=== PATIENT | female | born 1945 | race Caucasian/White ===

== ENCOUNTER 2018-05-05 10:40 | Emergency (ER) | payer MEDICARE ==
[~2018-05-05] VITALS: Ht 154.9 cm; Wt 45.5 kg
[~2018-05-05 10:40] MED LIST: ABILIFY2 MG PO; ARICEPT10 MG PO; ARICEPT5 MG PO; ATROVENT 0.02%2.5 ML UPD; BACLOFEN10 MG PO; BENTYL10 MG PO; CHOLESTYRAMIN4 G/PK1 PO; CILOSTAZOL50 MG PO; COREG6.25 MG PO; DEXILANT60 MG PO; DILANTIN100 MG PO; EFFEXOR37.5 MG PO; ESTRATEST 1.25-1 TAB PO; HYDROCHLOROTHIA25 MG PO; HYDROCODON-ACE1 EAC7 PO; KLONOPIN1 MG PO; LISINOPRIL5 MG PO; MEGACE 20 MG TA20 MG PO; MEGACE ES625 MG/5 M PO; NEURONTIN 300300 MG PO; PEPCID20 MG PO; PEPCID40 MG PO; PLAVIX75 MG PO; PLETAL PO; PREMARIN45 GM VG; PRINIVIL20 MG PO; PROVERA2.5 MG PO; TOPROL XL25 MG PO; ULTRAM50 MG PO; VITAMIN B-12500 MC1 PO; VITAMIN D5000 UNIT PO; WELLBUTRIN SR150 MG PO; XOPENEX 0.0.63 MG/3 UPD; ZYPREXA2.5 MG PO
[2018-05-05 10:43] VITALS: Ht 154.9 cm; Wt 45.5 kg
[2018-05-05] MEDS ORDERED: NORCO 10-325 TA1 TAB PO (10:49)
[2018-05-05] MEDS ORDERED: DILANTIN100 MG PO ×2 (10:53→10:56)
[2018-05-05] MEDS ORDERED: COLACE100 MG PO (10:54)
[2018-05-05] MEDS ORDERED: LISINOPRIL5 MG PO (10:54)
[2018-05-05] MEDS ORDERED: MOBIC7.5 MG PO (10:55)
[2018-05-05] MEDS ORDERED: LOPERAMIDE HCL2 MG PO (10:55)
[2018-05-05] MEDS ORDERED: ULTRAM50 MG PO (13:29)
[2018-05-05 15:31] VITALS: BP 142/65
== END 2018-05-05 15:04 | disposition home or self-care (01) ==
LOC: D.ER 10:40
DX: S01.81XA Laceration without foreign body of other part of head, initial encounter (principal); W18.30XA Fall on same level, unspecified, initial encounter; Y93.89 Activity, other specified; Y92.129 Unspecified place in nursing home as the place of occurrence of the external cause; S52.612A Displaced fracture of left ulna styloid process, initial encounter for closed fracture; G40.909 Epilepsy, unspecified, not intractable, without status epilepticus; F03.90 Unspecified dementia, unspecified severity, without behavioral disturbance, psychotic disturbance, mood disturbance, and anxiety; I10 Essential (primary) hypertension; J44.9 Chronic obstructive pulmonary disease, unspecified; F17.200 Nicotine dependence, unspecified, uncomplicated

== ENCOUNTER 2018-08-09 19:21 | Emergency (ER) | payer MEDICARE ==
[~2018-08-09] VITALS: Ht 154.9 cm; Wt 39.1 kg
[~2018-08-09 19:21] MED LIST changes: +COLACE100 MG PO; +LOPERAMIDE HCL2 MG PO; +MOBIC7.5 MG PO; +NORCO 10-325 TA1 TAB PO
[2018-08-09 19:23] VITALS: Ht 154.9 cm; Wt 39.1 kg
[2018-08-09] MEDS ORDERED: SEROQUEL25 MG PO (19:30)
[2018-08-09 22:04] VITALS: BP 112/68
== END 2018-08-09 22:05 ==
LOC: D.ER 19:21
DX: S01.81XA Laceration without foreign body of other part of head, initial encounter (principal); W18.30XA Fall on same level, unspecified, initial encounter; Y93.89 Activity, other specified; Y92.129 Unspecified place in nursing home as the place of occurrence of the external cause

== ENCOUNTER 2018-11-19 11:16 | Inpatient (IN) | payer MEDICARE, MEDICAID ==
[~2018-11-19 11:16] MED LIST changes: +SEROQUEL25 MG PO
[2018-11-19] MEDS ORDERED: MEGACE40 MG PO (11:58)
[2018-11-19] MEDS ORDERED: EFFEXOR37.5 MG (11:59)
[2018-11-19] MEDS ORDERED: DONEPEZIL HCL5 MG (11:59)
[2018-11-19] MEDS ORDERED: CILOSTAZOL50 MG (11:59)
[2018-11-19 12:30] VITALS: BP 132/83
[2018-11-19 13:00] LABS: BASOPHILS 0 % (0-2); EOSINOPHILS 1.5 % (0-7); HEMATOCRIT 36.6 % (36.0-48.0); HEMOGLOBIN 12.1 g/dL (12-16); IMMATURE GRANULOCYTES 0.2 % (0-5); MCH 31.8 pg (26.0-34.0); MCHC 33.1 g/dL (31.0-37.0); MCV 96.3 fL (80.0-100.0); MEAN PLATELET VOLUME 9.8 fL (7.4-10.4); MONOCYTES 6.5 % (2-11); NEUTROPHILS 67.8 % (40-80); PLATELET COUNT 296 10x3/uL (130-400); RDW 14.6 % (11.5-14.5); WBC 4.1 10x3/uL (4.8-10.8)
[2018-11-19 13:13] LABS: ALBUMIN 2.9 g/dL (3.4-5.0); ALKALINE PHOSPHATASE 102 U/L (46-116); ALT (SGPT) 21 U/L (10-68); BILIRUBIN - TOTAL 0.41 mg/dL (0.2-1.3); CALC OSMOLALITY 277 mosm/kg (275-300); CALCIUM 8.2 mg/dL (8.5-10.1); CARBON DIOXIDE 23.2 mmol/L (21.0-32.0); CHLORIDE - SERUM 104 mmol/L (98-107); CREATININE - SERUM 0.4 mg/dL (0.6-1.3); POTASSIUM - SERUM 3.4 mmol/L (3.5-5.1); PROTEIN - SERUM 6.4 g/dL (6.4-8.2); SODIUM 139 mmol/L (136-145); UREA NITROGEN 19 mg/dL (7-18); eGFR NON AFRICAN AMERICAN > 90 mL/min (90-120)
[2018-11-19 13:16] LABS: GLUCOSE 68 mg/dL (74-106)
[2018-11-19 13:44] LABS: CREATINE KINASE 245 UL (21-215)
[2018-11-19 13:45] LABS: CKMB 2.1 U/L (0.0-3.6); TROPONIN-I < 0.017 ng/mL (0.000-0.060)
[2018-11-19 13:53] LABS: APPEARANCE CLOUDY (CLEAR); BACTERIA MODERATE /hpf (NONE SEEN); BILIRUBIN NEGATIVE (NEGATIVE); CALCIUM OXALATE CRYSTALS 0-5 /hpf (NONE SEEN); COLOR YELLOW (YELLOW); EPITHELIAL CELLS 0-5 /hpf (0-5); GLUCOSE NEGATIVE (NEGATIVE); KETONE LARGE mg/dL (NEGATIVE); MUCUS >1+ /lpf (NONE SEEN); NITRITE NEGATIVE (NEGATIVE); PROTEIN TRACE mg/dL (NEGATIVE); RED CELLS - URINE 0-5 /hpf (0-5); SPECIFIC GRAVITY 1.025 (1.005-1.020); WHITE CELLS - URINE 0-5 /hpf (0-5)
[2018-11-19 13:54] LABS: AMORPHOUS SEDIMENT >1+ /lpf (NONE SEEN)
[2018-11-19 13:56] VITALS: BP 122/59
[2018-11-19 15:20] VITALS: BP 142/62
--- NOTE | 2018-11-19 15:23 | NUR ---
SITTING UP IN BED EATING LUNCH NO /O FAMILY AT BS
--- NOTE | 2018-11-19 16:23 | NUR ---
REPORT CALLED DOUG MCLEOD RN BY SBAR FORMAT
[2018-11-19 16:25] VITALS: BP 138/64
--- NOTE | 2018-11-19 16:25 | NUR ---
PT TRANSPORTED TO ROOM STABLE. IVFS INFUSING WITHOUT PROBLEMS
[2018-11-19 17:00] VITALS: BP 142/62; BMI 14.7
--- NOTE | 2018-11-19 17:00 | NUR ---
TRANSFER FROM ER BY STRETCHER. ORINTED TO ROOM. CALL LIGHT IN REACH. WILL CONT. PLAN OF CARE.
--- NOTE | 2018-11-19 19:50 | NUR ---
ON INITIAL ASSESMENT PT WAS FOUND ON THE WHEEL CHAIR SITTING AT NURSES STATION WITH OUTGOING NURSE. OUTGOING NURSE STATES PT WAS FOUND CURLED UP IN THE RAIL AND WOULDN'T STAY IN BED EVEN WITH RIN ALARM ON. NOTIFIED CHARGE NURSE. CHARGE NURSE STATES SHE HAS CONTACTED THE FAMILY AND THEY WILL BE HERE ANYTIME SOON. PT CURRENTLY RETURNED TO BED AT THIS TIME IV INFUSING. DENIES ANY FURTHER NEEDS. CONTROLLER OPERATIONS AND HR MANAGER @ BEDSIDE. VSS, ALERT, BUT CONFUSED. CL WITHIN REACH, BED IN LOW. WILL NOTIFY CONTROLLER OPERATIONS AND HR MANAGER WHEN FAILY GETS HERE PER CONTROLLER OPERATIONS AND HR MANAGER REQUEST.
[2018-11-19 20:00] VITALS: BP 103/56
[2018-11-20] VITALS: BP 142/56
[2018-11-20 04:00] VITALS: BP 120/58
[2018-11-20 07:18] LABS: CARBON DIOXIDE 25.2 mmol/L (21.0-32.0); CHLORIDE - SERUM 106 mmol/L (98-107); GLUCOSE 88 mg/dL (74-106); MAGNESIUM - SERUM 1.5 mg/dL (1.8-2.4); PHOSPHOROUS 2.4 mg/dL (2.5-4.9); POTASSIUM - SERUM 3.2 mmol/L (3.5-5.1); SODIUM 141 mmol/L (136-145)
[2018-11-20 07:19] LABS: CALC OSMOLALITY 278 mosm/kg (275-300); CREATININE - SERUM 0.6 mg/dL (0.6-1.3); UREA NITROGEN 9 mg/dL (7-18); eGFR NON AFRICAN AMERICAN > 90 mL/min (90-120)
[2018-11-20 07:21] LABS: HEMATOCRIT 39.6 % (36.0-48.0); HEMOGLOBIN 13.1 g/dL (12-16); MCH 32.2 pg (26.0-34.0); MCHC 33.1 g/dL (31.0-37.0); MCV 97.3 fL (80.0-100.0); PLATELET COUNT 306 10x3/uL (130-400); RBC 4.07 10x6/uL (4.00-5.40)
[2018-11-20 07:22] LABS: BASOPHILS 0.3 % (0-2); MEAN PLATELET VOLUME 9.8 fL (7.4-10.4); NEUTROPHILS 63 % (40-80); RDW 14.7 % (11.5-14.5)
[2018-11-20 07:23] LABS: EOSINOPHILS 2.6 % (0-7); IMMATURE GRANULOCYTES 0.3 % (0-5); LYMPHOCYTES 26.7 % (15-50); MONOCYTES 7.1 % (2-11); WBC 3.8 10x3/uL (4.8-10.8)
[2018-11-20 08:18] VITALS: BP 160/59
--- NOTE | 2018-11-20 09:31 | NUR ---
I have reviewed this patient and I concur with the Shift Assessment completed by the Licensed Practical Nurse today this shift.
[2018-11-20 12:16] VITALS: BMI 14.7
[2018-11-20 12:39] VITALS: BP 115/55
[2018-11-20 16:50] VITALS: BP 149/57
--- NOTE | 2018-11-20 17:30 | NUR ---
PATIENT IS YELLING OUT. WENT TO SEE WHAT SHE NEEDS. NEEDS ANOTHER BLANKET. BED ALARM TURNED ON IT WAS OFF.
[2018-11-20 21:04] VITALS: BP 136/61
[2018-11-21 01:29] VITALS: BP 159/74
--- NOTE | 2018-11-21 04:40 | NUR ---
ASSESSED AT THE BEGINNING OF THE SHIFT. PT IS CONFUSED AND IS IN A BED WITH A RIN MAT. SHE IS ABLE TO VERBALIZE NEEDS AND ANSWERS QUESTIONS CORRECTLY BUT THEN SAYS THINGS THAT DONT MAKE SENSE. AT 2100 LAST NIGHT SHE DECIDED SHE WAS GETTING UP AND EVEN THOUGH HER BED ALARM WENT OFF IT WAS WE WERE UNABLE TO GET THERE BEFORE SHE WAS IN THE FLOOR. SHE STATED SHE DID NOT FALL BUT SAT DOWN. NO INJURIES NOTED BUT IV WAS PULLED OUT. SHE TOOK HER MEDS AFTER THAT AND HAS BEEN QUIET ALL NIGHT WITH NO COMPLAINTS VOICED. THIS MORNING SHE IS HAVING A BATH AND HER IV WAS RESTARTED DURING THE NIGHT. SHE REMAINS INCONTINENT OF URINE AND STOOL.
[2018-11-21 06:22] VITALS: BP 155/65
--- NOTE | 2018-11-21 07:10 | NUR ---
REPORT RECEIVED FROM ELECTRIC BRAIN WAVE EQUIPMENT MECHANIC AND PATIENT CARE ASSUMED. PATIENT LAYING IN BED WITH EYES CLOSED AND BREATHING EVENLY. WILL CONTINUE WITH PLAN OF CARE. SR UP X 2 BED IN LOW POSTION AND CALL LIGHT IN REACH.
--- NOTE | 2018-11-21 07:50 | NUR ---
PATIENT AWAKE, ALERT AND CONFUSED. PATIENT ORIENTED TO NAME ONLY. PATIENT STATES THAT NO ONE IS GOING TO GET BLOOD OUT OF HER AND SHE IS TIRED OF THIS DAMN MCC. SPENT SEVERAL MINUTES SPEAKING WITH PATIENT . PATIENT DID CALM . WILL CONTINUE TO MONITOR. SR UP X 2 BED IN LOW POSTION AND CALL LIGHT IN REACH. RIN BED ALARM IN PLACE AND TURNED ON.
[2018-11-21 08:13] VITALS: BP 160/71
--- NOTE | 2018-11-21 09:00 | NUR ---
PATIENT REFUSE MEDS. MADE SEVERAL ATTEMPTS. PATIENT BEING VERBALLY ABUSIVE AND THREW STYROFOAM CUP OF WATER AT THIS NURSE. THREW BREAKFAST TRAY ON FLOOR. SPENT SEVERAL MINUTES ONE ON ONE WITH PATIENT. STUDENT NURSE AND SERVICE CAPTAIN SPENDING ONE ON ONE WITH PATIENT DUE TO PATIENT SCREAMING AND TRYING TO CRAWL OUT OF BED. SR UP X 2 BED IN LOW POSTION AND CALL LIGHT IN REACH. RIN BED ALARM IN PLACE AND WORKING.
--- NOTE | 2018-11-21 09:30 | NUR ---
CALLED PATIENT DAUGHTER PILAR ON PHONE. INFORMED HER OF PATIENTS CONFUSION AND MENTAL STATUS. DTR STATED THAT SHE WILL BE ON UNIT IN ABOUT AN HOUR TO HELP CALM HER MOTHER .
--- NOTE | 2018-11-21 10:15 | NUR ---
PATIENT CONTINUES TO BE VERBALLY ABUSIVE TO STAFF AND TRYING TO BET OUT OF BED REQUIRING ONE ON ONE WITH STAFF. CONTACTED DOMINIC BELL AND RECIEVED NEW ORDER FOR GEODON. GEODON 10 MG GIVEN IM. PATIENT CONTINUES ONE ON ONE. SR UP X 2 BED IN LOW POSITION AND CALL LIGHT IN REACH. WILL CONTINUE TO MONITOR.
--- NOTE | 2018-11-21 11:30 | NUR ---
PATIENT LAYING ON RIGHT SIDE WITH EYES CLOSED AND BREATHING EVENLY. WILL CONTINUE TO MONITOR. SR UP X 2 BED IN LOW POSITION AND CALL LIGHT IN REACH. RIN BED ALARM IN PLACE AND WORKING.
--- NOTE | 2018-11-21 15:30 | NUR ---
PATIENT SCREAMING , VERBALLY ABUSING STAFF AND REFUSING ANY AND ALL MEDICAL TREATMENT OR INTERVENTION. CALLED DOMINIC BELL AND RECIEVED ORDER FOR A RIN BED. RIN BED PLACED IN ROOM AND PATIENT PLACED IN RIN BED. PATIENT STATES"IM TIRED YALL NEED TO LEAVE ME ALONE." WILL CONTINUE TO MONITOR PATIENT.
--- NOTE | 2018-11-21 16:00 | NUR ---
PTS DTR PILAR HAS NOT COME TO UNIT. CALLED PILAR AND LEFT VM TO CALL BACK.
[2018-11-21] MEDS ORDERED: GEODON20 M1 IM (17:02)
--- NOTE | 2018-11-21 17:04 | NUR ---
PATIENT SCREAMING "CALL THE POLICE" "HELP ME" . PATIENT CONTINUES TO REFUSE MEDICATIONS, IV RE-START , VS , LAB DRAWS . DR RAMIREZ TO ROOM. INFORMS THAT IF PATIENT MEDICALLY STABLE PER DR ADAMS THEN HE RECOMMNEDS PATIENT TO BE DC TO [facility]. CONTACTED DOMINIC BELL WITH DR ADAMS. INFORMED OF DR RAMIREZ RECOMMENDATION AND PATIENT STATUS. PER DOMINIC BELL PATIENT TO BE DISCHARGED TO [facility] AND SHE WILL PUT IN ORDER. MEDICATED PER AUG WITH GEODON 10 MG IM. PATIENT IN RIN BED. NO DISTRESS NOTED. WILL CONTINUE TO MONITOR.
--- NOTE | 2018-11-21 19:00 | NUR ---
PATIENT RESTING COMFORTABLY IN RIN BED. EYES ARE CLOSED AND BREATHING EVENLY. WILL CONTINUE TO MONITOR. MADE ANOTHER ATTEMPT TO CONTACT PILAR KANG VM TO PLEASE CALL OUR UNIT.
[2018-11-21 20:00] VITALS: BP 168/68
--- NOTE | 2018-11-21 20:30 | NUR ---
PATIENT BEING DC TO [facility]. PATIENT RESTING COMFORTABLY IN RIN BED. PATIENT IS PLEASANT AND CALM. PATIENT DENIES ANY NEEDS OR PAIN. REPORT CALLED TO JAQUELINE AT [facility]. INFORMED THIS NURSE THAT THERE ARE NO CLEAN AVAILABLE ROOMS BUT [facility] WOULD BE CALLED AND JAQUELINE WILL LET OUR UNIT KNOW WHEN ROOM AVAILABLE.
--- NOTE | 2018-11-21 22:30 | NUR ---
CALLED [facility] AND SPOKE WITH JAQUELINE. AGAIN INFORMED THAT [facility] HAS NOT CLEANED ROOM YET BUT WILL CALL WHEN ROOM AVAILABLE. NOTIFIED EUGENIO PEMBERTON SUP OF SITUATION. SHE STATED THAT SHE WILL LOOK INTO DELAY.
--- NOTE | 2018-11-21 23:42 | NUR ---
PATIENT TRANSFERRED TO [facility].
--- NOTE | 2018-11-22 11:29 | CN ---
PATIENT NAME:NICOLE VARGHESE MEDICAL RECORD: [id number] : 49 LOCATION:. D.2104 ADMIT DATE: 11/19/18 ACCOUNT: [id number] CONSULTING PHYSICIAN: JOCELYN MYERS MD REFERRING PHYSICIAN: STONE ADAMS MD DATE OF CONSULTATION: 11/21/2018 IDENTIFYING DATA: The patient is 73 years old and she is admitted to the hospital on a voluntary basis. CHIEF COMPLAINT: None. HISTORY OF PRESENT ILLNESS: The patient has a complicated medical history. She has a history of stroke, seizures, coronary artery disease, hypertension, bradycardia, arthritis, osteoporosis, diverticulitis, gastroesophageal reflux disease, and breast cancer. She came to the Emergency Room when there were concerns about some facial drooping and progressive weakness. She has been quite confused. I am not entirely clear if stroke has been ruled out, but the patient has been very agitated. She is incontinent of stool and urine. She is clearly impaired cognitively. She has been agitated at times and pulled out her IV. MENTAL STATUS EXAMINATION: The patient is awake, alert, and oriented to person only. She thinks she is at [facility] and that the is 1989. Her mood is anxious. Her affect is constricted. Thought processes are circumstantial. Memory, concentration, and abstraction abilities are moderately impaired and she denies that she would seek to harm herself or others as well as psychotic symptoms. ASSESSMENT: Vascular dementia. PLAN: The patient does not look delirious. She looks impaired cognitively consistent with a dementing illness. Assuming medical and neurologic issues have been adequately addressed and resolved. I think it is appropriate to transfer her to the inpatient psychiatric unit for ongoing care. TRANSINT:[id number] Voice Confirmation ID: [id number] DOCUMENT ID: [id number] JOCELYN MYERS MD at 1129 CC: [id number] DICTATION DATE: 11/21/18 172 FACILITY SERVICE MANAGER: 11/21/18 193 DIS IN 11/22/18 [facility] [address] [id number]
--- NOTE | 2018-11-24 08:11 | MORECARE ---
CASE MANAGEMENT DISCHARGE SUMMARY PATIENT: NICOLE VARGHESE UNIT: [id number] ADM DATE: 11/19/18 AGE: 73 : 47 SEX: F ROOM/BED: D.2104 AUTHOR: ARTIS CASTLE PHYSICIAN: REFERRING PHYSICIAN: STONE ADAMS MD DATE OF SERVICE: 11/24/18 Discharge Plan Patient Name: NICOLE VARGHESE [facility] [facility] 1945 Planned Disposition: Inpatient Psych Facility Anticipated Discharge Date: 11/21/18 Discharge Date: 11/22/2018 Expected LOS: 2 Initial Reviewer: [email or web address] Initial Review Date: 11/24/2018 Generated: 11/24/18 9:10 am Patient Name: NICOLE VARGHESE Page [id number] at 0811 All edits/amendments must be made on the electronic document DICTATION DATE: 11/24/18809 APPLICATIONS SUPPORT ANALYST: CHARLEY 11/24/18809 RPT#: [id number] DC DATE:11/22/18 STATUS: DIS IN [facility] [address] [place] [address] END OF REPORT
== END 2018-11-21 23:45 | disposition short-term general hospital (02) | DRG 884 ==
LOC: D.ER 11:16 → D.M2 15:36
PROVIDERS: Family Medicine; ADMIT Family Medicine; ATTEND Family Medicine
DX: F01.50 Vascular dementia, unspecified severity, without behavioral disturbance, psychotic disturbance, mood disturbance, and anxiety (principal); Z68.1 Body mass index [BMI] 19.9 or less, adult; K57.92 Diverticulitis of intestine, part unspecified, without perforation or abscess without bleeding; I69.354 Hemiplegia and hemiparesis following cerebral infarction affecting left non-dominant side; F02.80 Dementia in other diseases classified elsewhere, unspecified severity, without behavioral disturbance, psychotic disturbance, mood disturbance, and anxiety; R62.7 Adult failure to thrive; M19.90 Unspecified osteoarthritis, unspecified site; R00.1 Bradycardia, unspecified; I10 Essential (primary) hypertension; G40.909 Epilepsy, unspecified, not intractable, without status epilepticus; Z74.09 Other reduced mobility; I69.319 Unspecified symptoms and signs involving cognitive functions following cerebral infarction; Z87.891 Personal history of nicotine dependence

== ENCOUNTER 2018-11-21 23:20 | Inpatient (IN) | payer MEDICARE ==
[~2018-11-21] VITALS: Ht 154.9 cm; Wt 33.5 kg
[~2018-11-21 23:20] MED LIST changes: +CILOSTAZOL50 MG; +DONEPEZIL HCL5 MG; +EFFEXOR37.5 MG; +GEODON20 M1 IM; +MEGACE40 MG PO
--- NOTE | 2018-11-22 00:41 | NUR ---
PATIENT ARRIVED FROM [facility], WITH A DIAGNOSIS OF DEMENTIA, PATIENT IS CONFUSED, EXTREMELY UNDERWEIGHT, PATIENT WAS ABLE TO ANSWER MOST QUESTIONS AND CONFESSES TO WANTING TO BE HERE AND STATES THAT IF SHE STOPPED BREATHING THAT SHE WANTS TO BE RESUSCITATED. PT. WEARS GLASSES, HAS TOP AND BOTTOM DENTURES. NO SKIN BREAKDOWNS OR BRUISES NOTED. PATIENT IS WEAK AND CAN NOT WALK, SHE USES A WHEELCHAIR. REPORT RECEIVED FROM ESTER THAT THE FAMILY DOES NOT WANT HER TO RETURN BACK TO [facility] DUE TO A FALL. PATIENT WAS ORIENTED TO ROOM AND UNIT, CALL [facility]. HER CODE WORD IS "DOG", BECAUSE THAT IS HER FAVORITE ANIMAL.
[2018-11-22 06:01] LABS: BASOPHILS 0.1 % (0-2); EOSINOPHILS 0.3 % (0-7); HEMATOCRIT 41.4 % (36.0-48.0); HEMOGLOBIN 13.7 g/dL (12-16); IMMATURE GRANULOCYTES 0.3 % (0-5); LYMPHOCYTES 11.1 % (15-50); MCHC 33.1 g/dL (31.0-37.0); MCV 96.7 fL (80.0-100.0); MEAN PLATELET VOLUME 9.8 fL (7.4-10.4); MONOCYTES 7.8 % (2-11); NEUTROPHILS 80.4 % (40-80); PLATELET COUNT 335 10x3/uL (130-400); RBC 4.28 10x6/uL (4.00-5.40); RDW 14.9 % (11.5-14.5); WBC 11.6 10x3/uL (4.8-10.8)
[2018-11-22 06:27] LABS: ALBUMIN 3.5 g/dL (3.4-5.0); ALKALINE PHOSPHATASE 118 U/L (46-116); ALT (SGPT) 37 U/L (10-68); BILIRUBIN - TOTAL 0.51 mg/dL (0.2-1.3); CALC OSMOLALITY 272 mosm/kg (275-300); CALCIUM 8.9 mg/dL (8.5-10.1); CARBON DIOXIDE 26.7 mmol/L (21.0-32.0); CHLORIDE - SERUM 102 mmol/L (98-107); CHOL - HDL RATIO 4.5 ratio (2.3-4.1); CHOLESTEROL, TOTAL 209 mg/dL (0-200); CREATININE - SERUM 0.4 mg/dL (0.6-1.3); GLUCOSE 88 mg/dL (74-106); HDL CHOLESTEROL 47 mg/dL (32-96); LDL CHOLESTEROL 141 mg/dL (0-100); POTASSIUM - SERUM 3.1 mmol/L (3.5-5.1); PROTEIN - SERUM 7.5 g/dL (6.4-8.2); SODIUM 138 mmol/L (136-145); THYROID STIMULATING HORMONE 0.82 uIU/mL (0.36-3.74); TRIGLYCERIDE 109 mg/dL (30-200); UREA NITROGEN 8 mg/dL (7-18); eGFR NON AFRICAN AMERICAN > 90 mL/min (90-120)
[2018-11-22 10:34] VITALS: BMI 14.7
[2018-11-22 11:51] VITALS: BP 158/71
--- NOTE | 2018-11-22 12:52 | NUR ---
B) The patient is awake and alert, but she has poor short term memory. She has poor insight into her situation. She does keep asking to walk and stand, but she is not able so she is a falls risk. I) Provide prescribed meds. Redirect as needed. R) The patient needs frequent redirection. P) Continue POC.
--- NOTE | 2018-11-22 15:00 | NUR ---
One of the patient's daughters called and requested to visit now stating her daughter was here from [facility]. Let her know without special permission from the recycling program manager the visitation times remain from 3:30 unitl 5:00. The daughter did not have a code word so I did put her on hold and asked the patient if it is ok to give her daughter her code word. The patient did consent to giving the code word.
[2018-11-22 20:42] VITALS: BP 157/64
--- NOTE | 2018-11-22 21:17 | NUR ---
B) Patient is alert and oriented to person, and place, hyperverbal at times, social with staff, I) Administered scheduled medications as ordered, monitored for safety, assisted with needs, R) Mediation compliant, calm and cooperative this shift.
[2018-11-23 07:00] VITALS: BP 144/63
--- NOTE | 2018-11-23 07:30 | NUR ---
PT IS ALERT AND ORIENTED WITH POOR INSIGHT. CALM AND COOPERATIVE WITH ASSESSMENT. MED COMPLIANT. NO AGGRESSION NOTED AT THIS TIME. REDIRECT AND REORIENT NEEDED. FALL PRECAUTIONS IN PLACE. WILL CPOC.
[2018-11-23 08:23] VITALS: BP 144/63
--- NOTE | 2018-11-23 12:15 | PSY ---
PATIENT NAME:NICOLE VARGHESE MEDICAL RECORD: [id number] : 49 LOCATION:DANIEL Santos2 ADMISSION DATE: 11/21/18 ACCOUNT: [id number] PSYCHIATRIC EVALUATION DATE OF EVALUATION: 11/22/18 IDENTIFYING DATA: The patient is 73 years old and she is admitted to the hospital on a voluntary basis. CHIEF COMPLAINT: Agitation. HISTORY OF PRESENT ILLNESS: The patient was initially admitted to the hospital secondary to stroke or concerns about a stroke. She apparently had some facial drooping and some progressive weakness. She was also quite confused. Acute stroke was ruled out, but the patient became increasingly agitated. She was incontinent of urine and stool. She was clearly impaired cognitively, pulled out her IV and was very aggressive with caregivers. Unfortunately, she is not a very good historian. PAST MEDICAL HISTORY: Significant for stroke, seizure activity, coronary artery disease, hypertension, bradycardia, osteoarthritis, diverticulitis, gastroesophageal reflux disease, and breast cancer. PAST PSYCHIATRIC HISTORY: Negative by her report, which is unreliable. FAMILY HISTORY: Noncontributory. ALLERGIES: SULFA, CODEINE, AND ASPIRIN. CURRENT MEDICATIONS: Include Aricept, vitamin B12, vitamin D, lisinopril, Pepcid, Seroquel, Dilantin, Pletal, Coreg, Effexor, Imodium, Colace, and Geodon. SOCIAL HISTORY: The patient is . She has 4 adult children. She apparently has been living in a skilled nursing, although she has no recollection of this. She denies any history of drug or alcohol abuse. MENTAL STATUS EXAMINATION: The patient is awake, alert, and oriented to person only. She tells me that the hospital that we are in is her house, that the year is 1991, and that she does not need anything from me. Her mood is euthymic. Her affect is appropriate. Thought processes are very disorganized. Memory, concentration, and abstraction abilities are severely impaired, and she denies any active intent to harm herself or others as well as overt psychotic symptoms. ASSETS: Supportive family members. LIABILITIES: Limited insight. DIAGNOSTIC IMPRESSION: AXIS I: Vascular dementia. AXIS II: None. AXIS III: Hypertension, history of stroke, seizure disorder, coronary artery disease, osteoporosis, gastroesophageal reflux disease, and bradycardia. AXIS IV: Moderate. AXIS V: Global assessment of functioning is 30. PLAN: At this time, the patient is admitted to the hospital secondary to aggressive behaviors associated with a dementing illness. She will be comprehensively evaluated from both a medical, psychological, and social standpoint. She will be treated with both mood stabilizing and memory enhancing medications. Her long-term prognosis is guarded. TRANSINT:[id number] Voice Confirmation ID: [id number] DOCUMENT ID: [id number] JOCELYN MYERS MD at 1215 CC: [id number] DICTATION DATE: 11/22/18 1244 PERFORATOR TYPIST: 11/22/18 1316 ADM IN [id number] [place] [address]
[2018-11-23 20:56] VITALS: BP 124/56
--- NOTE | 2018-11-24 01:04 | NUR ---
RECEIVED IN DAYROOM. RESTING QUIETLY IN A CHAIR WITH PEERS AT HER SIDE. CONFUSED. CALM AND COOPERATIVE WITH CARE AND ASSESSMENT. REDIRECT AND REORIENT NEEDED. RESTING IN BED WITH EYES CLOSED AT THIS TIME. CONTINUE PLAN OF CARE
[2018-11-24 06:59] LABS: BASOPHILS 0.1 % (0-2); EOSINOPHILS 1.7 % (0-7); HEMATOCRIT 35.3 % (36.0-48.0); HEMOGLOBIN 11.7 g/dL (12-16); IMMATURE GRANULOCYTES 0.1 % (0-5); LYMPHOCYTES 16.5 % (15-50); MCH 31.7 pg (26.0-34.0); MCHC 33.1 g/dL (31.0-37.0); MCV 95.7 fL (80.0-100.0); MEAN PLATELET VOLUME 10.1 fL (7.4-10.4); MONOCYTES 10.6 % (2-11); PLATELET COUNT 310 10x3/uL (130-400); RBC 3.69 10x6/uL (4.00-5.40); RDW 14.9 % (11.5-14.5); WBC 8.8 10x3/uL (4.8-10.8)
[2018-11-24 07:00] VITALS: BP 146/68
[2018-11-24 07:41] LABS: CALC OSMOLALITY 281 mosm/kg (275-300); CALCIUM 8.8 mg/dL (8.5-10.1); CARBON DIOXIDE 28.1 mmol/L (21.0-32.0); CHLORIDE - SERUM 102 mmol/L (98-107); CREATININE - SERUM 0.4 mg/dL (0.6-1.3); GLUCOSE 93 mg/dL (74-106); POTASSIUM - SERUM 3.3 mmol/L (3.5-5.1); SODIUM 140 mmol/L (136-145); UREA NITROGEN 22 mg/dL (7-18); eGFR NON AFRICAN AMERICAN > 90 mL/min (90-120)
[2018-11-24 07:42] VITALS: Ht 154.9 cm; Wt 33.5 kg
--- NOTE | 2018-11-24 10:00 | NUR ---
AWAKE AND ALERT WITH CONFUSION NOTED. CALM AND COOPERATIVE WITH CARE AND ASSESSMENT. REDIRECT AND REORIENT NEEDED. MEDICATION COMPLIANT. CONTINUE POC.
[2018-11-24 12:09] LABS: VITAMIN D 25 HYDROXY 50.6 ng/mL (30.0-100.0)
--- NOTE | 2018-11-24 14:32 | PN ---
PATIENT:NICOLE VARGHESE MEDICAL RECORD: [id number] LOCATION:DANIEL LukeKatie ADMISSION DATE: 11/21/18 PROGRESS NOTE DATE OF SERVICE: 11/23/2018 SUBJECTIVE: The patient's case was discussed with staff. She has no new complaint. OBJECTIVE: The patient is in good behavioral control with limited insight about her condition. She tolerates her medicines well. She is not eating adequately. Her weight is significantly reduced. I am going to order Megace to assist with appetite stimulation. TRANSINT:[id number] Voice Confirmation ID: [id number] DOCUMENT ID: [id number] JOCELYN MYERS MD at 1432 CC: [id number] DICTATION DATE: 11/23/18 1250 SUPERVISOR DENTAL LABORATORY: 11/23/18 1432 ADM IN [address] [id number] [place] [address]
--- NOTE | 2018-11-24 19:57 | NUR ---
RECEIVED IN DAYROOM. SITTING IN A CHAIR WITH PEERS AT HER SIDE. CONFUSED. REDIRECT AND REORIENT NEEDED. ENCOURAGE TO EXPRESS NEEDS. CONTINUE TO SIT QUIETLY. CONTINUE PLAN OF CARE
[2018-11-24 20:00] VITALS: BP 131/56
[2018-11-25 03:08] LABS: RAPID PLASMA REAGIN Non Reactive (Non Reactive)
[2018-11-25 05:12] LABS: FOLATE (FOLIC ACID) - SERUM 5.5 ng/mL (>3.0)
[2018-11-25 08:30] VITALS: BP 151/55
--- NOTE | 2018-11-25 11:01 | NUR ---
Nutrition follow up Regular diet with Ensure ordered all trays Pt eating 0-25% of meals On megace Weight 76lb Will try soft diet Spoke with nursing-nursing to encouraged po intake RD following
--- NOTE | 2018-11-25 12:05 | NUR ---
SITTING IN DAYROOM, CALM, QUIET, COOPERATIVE, QUITE CONFUSED. MEDS ADMIN PER MED NURSE. COOPERATIVE WITH CARE AND GROUP ACTIVITY. CONT POC INCLUDING MEDS AND GROUP ACTIVITY DIRECTED.
--- NOTE | 2018-11-25 13:17 | PN ---
PATIENT:NICOLE VARGHESE MEDICAL RECORD: [id number] LOCATION:DANIEL LukeKatie ADMISSION DATE: 11/21/18 PROGRESS NOTE DATE OF SERVICE: 11/24/2018 SUBJECTIVE: The patient's case was discussed with staff. She has no new complaint. OBJECTIVE: The patient is not eating very well and she is on Megace. She has been confused, but not seriously aggressive. ASSESSMENT: Vascular dementia. PLAN: Current medicines have been reviewed and will be maintained. Long-term prognosis is guarded. TRANSINT:[id number] Voice Confirmation ID: [id number] DOCUMENT ID: [id number] JOCELYN MYERS MD at 1317 CC: [id number] DICTATION DATE: 11/24/18 1618 NIGHT ORDER SELECTOR: 11/24/18 1909 ADM IN [facility] [address] [place] [address]
[2018-11-25 20:00] VITALS: BP 122/65
--- NOTE | 2018-11-25 21:02 | NUR ---
RECEIVED IN DAYROOM. SITTING IN A CHAIR WITH PEERS AT HER SIDE. CALM AND COOPERATIVE WITH CARE AND ASSESSMENT. ENCOURAGE TO EXPRESS NEEDS. RESTING QUIETLY AT THIS TIME. CONTINUE PLAN OF CARE
[2018-11-26 10:17] VITALS: BP 144/57
--- NOTE | 2018-11-26 11:00 | NUR ---
AWAKE AND ALERT WITH CONFUSION NOTED. CALM AND COOPERATIVE WITH CARE AND ASSESSMENT. MEDICATION COMPLIANT. REDIRECT AND REORIENT NEEDED. WILL CONTINUE PLAN OF CARE.
--- NOTE | 2018-11-26 13:27 | PN ---
PATIENT:NICOLE VARGHESE MEDICAL RECORD: [id number] LOCATION:DANIEL LukeKatie ADMISSION DATE: 11/21/18 PROGRESS NOTE DATE OF SERVICE: 11/25/2018 SUBJECTIVE: The patient's case was discussed with staff. She has no new complaint. OBJECTIVE: The patient is very disorganized in her thought processes, but not openly aggressive. She denies intent to harm herself or others. ASSESSMENT: Vascular dementia. PLAN: Current medicines have been reviewed and will be maintained. Her long-term prognosis is guarded. TRANSINT:[id number] Voice Confirmation ID: [id number] DOCUMENT ID: [id number] JOCELYN MYERS MD at 1327 CC: [id number] DICTATION DATE: 11/25/18 1332 EDGER HAND: 11/25/18 1410 ADM IN [id number] [place] [address]
[2018-11-26 15:47] LABS: PHENYTOIN (DILANTIN) 24.7 ug/mL (10.0-20.0); THYROID STIMULATING HORMONE 1.2 uIU/mL (0.36-3.74)
--- NOTE | 2018-11-26 20:54 | NUR ---
PT. IS CONFUSED MORE IN THE EVENING. COMPLIANT WITH MEDS. IN JOCE CHAIR, HAS TO HAVE HELP WITH ADL'S. FOLLOWS DIRECTIONS AT TIMES. WILL FOLLOW POC
[2018-11-26 21:07] VITALS: BP 140/70
--- NOTE | 2018-11-27 11:46 | NUR ---
B) The patient is awake, but she is oriented to person only, she has poor insight into her situation. She is sad, she is talking to the MHT and she says she is hurting. I) Provide prescribed medications. R) The patient is compliant with meds. She did stand and transfer which helps her with her stiffness. P) Continue POC.
--- NOTE | 2018-11-27 12:31 | NUR ---
The patient c/o pain in her right leg. She rates 10/10. She has a red area to her outer leg. She says she fell off of the curn is why it hurts. Ibuprofen po provided, see MAR.
--- NOTE | 2018-11-27 13:15 | NUR ---
The patient says her pain is gone now and she feels better.
[2018-11-27 14:46] LABS: APPEARANCE CLEAR (CLEAR); BILIRUBIN NEGATIVE (NEGATIVE); COLOR YELLOW (YELLOW); GLUCOSE 1000 mg/dL (NEGATIVE); KETONE NEGATIVE (NEGATIVE); NITRITE NEGATIVE (NEGATIVE); PROTEIN NEGATIVE (NEGATIVE)
--- NOTE | 2018-11-27 14:55 | PN ---
PATIENT:NICOLE VARGHESE MEDICAL RECORD: [id number] LOCATION:DANIEL LukeKatie ADMISSION DATE: 11/21/18 PROGRESS NOTE DATE OF SERVICE: 11/26/2018 SUBJECTIVE: The patient's case was discussed with staff. She has no new complaint. OBJECTIVE: The patient is much more alert and cooperative today. She clearly is very impaired cognitively, but is not disruptive in any appreciable way. She did sleep well last night. ASSESSMENT: No change in diagnoses. PLAN: The patient's thyroid and Dilantin levels will be checked today. Her long-term prognosis is guarded. TRANSINT:[id number] Voice Confirmation ID: [id number] DOCUMENT ID: [id number] JOCELYN MYERS MD at 1455 CC: [id number] DICTATION DATE: 11/26/18 1332 VESSEL SPECIALIST: 11/26/18 1341 ADM IN [address] [id number] [place] [id number]
--- NOTE | 2018-11-27 15:53 | NUR ---
The patient c/o pain in her right leg, rates it 10/10. Did provide Tylenol 650 mg PO.
[2018-11-27 20:43] VITALS: BP 122/60
--- NOTE | 2018-11-27 22:14 | NUR ---
PATIENT HAS CONFUSION, MORE IN THE EVENING TIME. HAS TO HAVE HELP WITH ADL'S, COMPLIANT WITH MEDS, CAN MAKE HER NEEDS KNOWN, SHE CAN BE "FIESTY" AT TIMES. WILL FOLLOW POC
--- NOTE | 2018-11-28 07:24 | NUR ---
B) The patient is awake and she is pleasant she has poor insight into her situation and knows her name and place. She has lost track of the days and time as she believes she fell off of a curb last week. I) Provide prescribed meds. R) The patient is compliant with meds. She listens to direction. She can self propel in a w/c. P) Continue POC.
[2018-11-28 09:40] VITALS: BP 152/56
--- NOTE | 2018-11-28 15:38 | PN ---
PATIENT:NICOLE VARGHESE MEDICAL RECORD: [id number] LOCATION:DANIEL LukeKatie ADMISSION DATE: 11/21/18 PROGRESS NOTE DATE OF SERVICE: 11/27/2018 SUBJECTIVE: The patient's case was discussed with staff. She has no new complaint. OBJECTIVE: The patient denies intent to harm herself or others. She is more awake, alert, and interactive today. ASSESSMENT: Vascular dementia. PLAN: Current medicines and therapies have been reviewed and will be maintained. I am concerned about the patient's poor oral intake and I have discussed this with her. She says she will try better, but says that she is eating as much as she can. TRANSINT:[id number] Voice Confirmation ID: [id number] DOCUMENT ID: [id number] JOCELYN MYERS MD at 1538 CC: [id number] DICTATION DATE: 11/27/18 1510 PENCIL MAKER: 11/27/18 1533 ADM IN [address] [address] [place] [address]
[2018-11-28 20:28] VITALS: BP 134/57
--- NOTE | 2018-11-29 03:41 | NUR ---
B.) Patient is Alert and oriented to Person and Place only. She has a pleasant attitude. She can self-propel in a odin-chair. I.) Administered routine PM Medications. R.) Compliance with all PM Medications. P.) Continue Plan of Care.
[2018-11-29 09:29] VITALS: BP 157/57
--- NOTE | 2018-11-29 11:54 | PN ---
PATIENT:NICOLE VARGHESE MEDICAL RECORD: [id number] LOCATION:DANIEL Luke112 ADMISSION DATE: 11/21/18 PROGRESS NOTE DATE OF SERVICE: 11/28/2018 SUBJECTIVE: The patient's case was discussed with staff. She has no new complaint. OBJECTIVE: The patient is showing significant improvement. She is much more cooperative and interactive. Her appetite has also increased. ASSESSMENT: Vascular dementia. PLAN: The patient is showing improvement and will be maintained on current medicines and therapies. TRANSINT:[id number] Voice Confirmation ID: [id number] DOCUMENT ID: [id number] JOCELYN MYERS MD at 1154 CC: [id number] DICTATION DATE: 11/28/18 1622 FUR REPAIR INSPECTOR: 11/28/18 2250 ADM IN [address] [address]
--- NOTE | 2018-11-29 12:56 | NUR ---
B) The patient is awake and alert, she says she does not feel well. She c/o her stomach bothering her. I) Provide prescribed meds. R) The patient is compliant with meds. P) Continue POC.
[2018-11-29 22:04] VITALS: BP 148/68
--- NOTE | 2018-11-30 00:16 | NUR ---
B.) Patient is alert and socializes well with staff and other patients. I.) Provided PM medications as prescribed. R.) Consented to all PM medications. P.) Continue Plan of Care.
[2018-11-30 07:00] VITALS: BP 135/61
--- NOTE | 2018-11-30 13:01 | PN ---
PATIENT:NICOLE VARGHESE MEDICAL RECORD: [id number] LOCATION:DANIEL LukeKatie ADMISSION DATE: 11/21/18 PROGRESS NOTE DATE OF SERVICE: 11/29/2018 SUBJECTIVE: The patient's case was discussed with staff. She has no new complaint. OBJECTIVE: The patient is oriented to person and place, but not to time or situation. She shows no evidence of delusions and denies that she would seek to harm herself or others. ASSESSMENT: No change in diagnoses. PLAN: Current medicines have been reviewed and will be maintained. Long-term prognosis is guarded. TRANSINT:[id number] Voice Confirmation ID: [id number] DOCUMENT ID: [id number] JOCELYN MYERS MD at 1301 CC: [id number] DICTATION DATE: 11/29/18 1203 POWER EQUIPMENT MECHANICS INSTRUCTOR: 11/29/18 1234 ADM IN [address] [address] [place] [address]
--- NOTE | 2018-11-30 18:16 | NUR ---
ORIENTED TO SELF AND PLACE.COMPLIANT WITH MEDS AND STAFF.WILL CONTINUE WITH PLAN OF CARE,MONITOR FOR CHANGES AND SAFETY.
[2018-11-30 23:14] VITALS: BP 110/44
--- NOTE | 2018-11-30 23:30 | NUR ---
B.) Patient is Alert and oriented X4. She socializes well with staff members and other patients. She relies on a odin-chair to get around the unit. I.) Provide PM medications. R.) Compliant with PM medications P.) Continue Plan of Care.
[2018-12-01 07:00] VITALS: BP 134/60
--- NOTE | 2018-12-01 09:30 | NUR ---
PATIENT IS AWAKE AND ALERT WITH CONFUSION NOTED. CALM AND COOPERATIVE WITH CARE AND ASSESSMENT. COMPLIANT WITH MEDICATIONS. WILL CONTINUE PLAN OF CARE.
--- NOTE | 2018-12-01 15:13 | PN ---
PATIENT:NICOLE VARGHESE MEDICAL RECORD: [id number] LOCATION:[facility] ADMISSION DATE: 11/21/18 PROGRESS NOTE DATE OF SERVICE: 11/30/2018 SUBJECTIVE: The patient's case was discussed with staff. She has no new complaint. OBJECTIVE: The patient is tolerating her medicines well. She has not been disruptive. ASSESSMENT: Vascular dementia. PLAN: Current medicines have been reviewed and will be maintained. Long-term prognosis is guarded. TRANSINT:[id number] Voice Confirmation ID: [id number] DOCUMENT ID: [id number] JOCELYN MYERS MD at 1513 CC: [id number] DICTATION DATE: 11/30/18 1304 ACCOUNTS RECEIVABLE MANAGER: 11/30/18 1641 ADM IN [id number] [place] [address]
--- NOTE | 2018-12-01 21:38 | NUR ---
RECEIVED IN DAYROOM. SITTING IN A CHAIR WITH PEERS AT HER SIDE. CALM AND COOPERATIVE WITH CARE AND ASSESSMENT. ENCOURAGE TO EXPRESS NEEDS. RESTING IN BED AT THIS TIME. CONTINUE PLAN OF CARE
[2018-12-02 05:15] VITALS: BP 122/64
--- NOTE | 2018-12-02 09:00 | NUR ---
PATIENT IS AWAKE AND ORIENTED X 3. CALM AND COOPERATIVE WITH CARE AND ASSESSMENT. NO CONFUSION NOTED AT THIS TIME. MEDICATION COMPLIANT. REDIRECT AND REORIENT NEEDED. WILL CONTINUE PLAN OF CARE.
--- NOTE | 2018-12-02 09:30 | NUR ---
ADVIL 200 MG PO GIVEN FOR LEFT FOOT PAIN AT LEVEL #8
--- NOTE | 2018-12-02 09:52 | NUR ---
Nutrition follow up Regular mechanical soft diet with 25% average po intake past 3 days Ensure ordered with meals Pt is on Megace Weight 73.6lb Pt continues to lose weight REC: May want to consider alternate nutrition support RD following
--- NOTE | 2018-12-02 10:00 | NUR ---
PAIN LEVEL #4 FOR FOOT PAIN AFTER MEDICATION.
[2018-12-02 11:56] VITALS: BP 152/62
--- NOTE | 2018-12-02 15:19 | PN ---
PATIENT:NICOLE VARGHESE MEDICAL RECORD: [id number] LOCATION:[facility] ADMISSION DATE: 11/21/18 PROGRESS NOTE DATE OF SERVICE: 12/01/2018 SUBJECTIVE: The patient's case was discussed with staff. She has no new complaint. OBJECTIVE: The patient is eating slightly better, but still not adequately in my view. ASSESSMENT: Vascular dementia. PLAN: The patient will be maintained on current medicines. Supportive and educational interventions were made. I anticipate she can be transitioned out of the hospital and back to a penitentiary soon. TRANSINT:[id number] Voice Confirmation ID: [id number] DOCUMENT ID: [id number] JOCLEYN MYERS MD at 1519 CC: [id number] DICTATION DATE: 12/01/18 1526 USED CAR MAKE READY WORKER: 12/01/18 1707 ADM IN [facility] [address] [place] [address]
[2018-12-02] MEDS ORDERED: DONEPEZIL HCL5 MG PO (15:28)
[2018-12-02] MEDS ORDERED: MACROBID100 MG PO (15:28)
[2018-12-02] MEDS ORDERED: EFFEXOR50 MG PO (15:29)
[2018-12-02] MEDS ORDERED: FLORAJEN3 CAPS460 MG PO (15:29)
[2018-12-02] MEDS ORDERED: MEGACE ES625 MG/5 M PO (15:30)
--- NOTE | 2018-12-02 20:12 | NUR ---
RECEIVED IN HALLWAY. SITTING IN A CHAIR. CALM AND COOPERATIVE WITH CARE AND ASSESSMENT. CONFUSED. REDIRECT AND REORIENT NEEDED. RESTING IN BED WITH EYES CLOSED AT THIS TIME. CONTINUE PLAN OF CARE
[2018-12-03 01:35] VITALS: BP 150/70
--- NOTE | 2018-12-03 09:00 | NUR ---
PATIENT IS AWAKE AND ALERT. CALM AND COOPERATIVE WITH CARE AND ASSESSMENT. REDIRECT AND REORIENT NEEDED. WILL CONTINUE PLAN OF CARE.
[2018-12-03 09:10] VITALS: BP 156/60
--- NOTE | 2018-12-03 11:30 | NUR ---
DISCHARGE PAPERWORK COMPLETED AND BELONGS COLLECTED. LEFT HOSPITAL VIA PRIVATE CAR WITH DAUGHTER.
--- NOTE | 2018-12-03 12:39 | PN ---
PATIENT:NICOLE VARGHESE MEDICAL RECORD: [id number] LOCATION:[facility] ADMISSION DATE: 11/21/18 PROGRESS NOTE DATE OF SERVICE: 12/02/2018 SUBJECTIVE: The patient's case was discussed with staff. She has no new complaint. OBJECTIVE: The patient is in good behavioral control. She is partially oriented. She denies intent to harm herself or others. ASSESSMENT: Vascular dementia. PLAN: Current medicines have been reviewed and will be maintained. She will be transitioned home with her daughter tomorrow. The patient and her daughter want this to happen. There has been some concern about her safety or more accurately the ability of the daughter to care for her. Home health will be checking on them. I think the daughter is doing more than she probably can handle, but this is their wishes and there is certainly nothing about the situation that rises to the level of involving state authorities. I am not saying that I agree with it. In other words, saying that the situation is not reportable to the state is not the same as saying I approve, which I do not. I think that she needs more care. I am glad home health will be there to monitor her. TRANSINT:[id number] Voice Confirmation ID: [id number] DOCUMENT ID: [id number] JOCELYN MYERS MD at 1239 CC: [id number] DICTATION DATE: 12/02/18 1528 MASTER CONTROL SUPERVISOR: 12/02/18 194 ADM IN [facility] [address] [id number]
--- NOTE | 2018-12-04 08:21 | PN ---
PATIENT:NICOLE VARGHESE MEDICAL RECORD: [id number] LOCATION:[facility] ADMISSION DATE: 11/21/18 PROGRESS NOTE DATE OF SERVICE: 12/03/2018 SUBJECTIVE: The patient's case was discussed with staff. She has no new complaint. OBJECTIVE: The patient is calm and in good behavioral control. She is partially oriented and she is actually eating significantly better. ASSESSMENT: Vascular dementia. PLAN: The patient will be discharged home with her daughter today. I have some reservations about this placement and I have discussed, but both the patient and her daughter want this to happen. She will have follow up with home health and there will be someone going into the home to make sure that she is being adequately supervised and cared for. TRANSINT:[id number] Voice Confirmation ID: [id number] DOCUMENT ID: [id number] JOCELYN MYERS MD at 0821 CC: [id number] DICTATION DATE: 12/03/18 1402 VACUUM BOTTLE ASSEMBLER: 12/03/18 1440 DIS IN 12/03/[id number] [place] [address]
== END 2018-12-03 11:30 | disposition home or self-care (01) | DRG 884 ==
LOC: D.PSYCH 23:20
PROVIDERS: Family Medicine; ADMIT Psychiatry & Neurology Psychiatry; ATTEND Psychiatry & Neurology Psychiatry
DX: F03.91 Unspecified dementia, unspecified severity, with behavioral disturbance (principal); N39.0 Urinary tract infection, site not specified; I25.10 Atherosclerotic heart disease of native coronary artery without angina pectoris; I10 Essential (primary) hypertension; K21.9 Gastro-esophageal reflux disease without esophagitis; M19.90 Unspecified osteoarthritis, unspecified site; F32.9 Major depressive disorder, single episode, unspecified; E78.5 Hyperlipidemia, unspecified; G40.909 Epilepsy, unspecified, not intractable, without status epilepticus; E87.6 Hypokalemia; D72.829 Elevated white blood cell count, unspecified; E55.9 Vitamin D deficiency, unspecified; E53.8 Deficiency of other specified B group vitamins; K59.00 Constipation, unspecified; K52.9 Noninfective gastroenteritis and colitis, unspecified